=== PATIENT | male | born 1950 | race Caucasian/White ===

== ENCOUNTER 2019-01-28 15:38 | Emergency (ER) | payer MEDICAID, OTHER ==
[~2019-01-28] VITALS: Ht 162.6 cm; Wt 77.7 kg
[2019-01-28 15:44] VITALS: Ht 162.6 cm; Wt 77.7 kg
[2019-01-28] MEDS ORDERED: DOCU-144 PO (16:49)
[2019-01-28] MEDS ORDERED: ATOR40TA68 PO (16:50)
[2019-01-28] MEDS ORDERED: SENN-120 PO (16:50)
[2019-01-28] MEDS ORDERED: MORP15TA92 PO (16:52)
[2019-01-28] MEDS ORDERED: MENT1ADH TP (16:52)
[2019-01-28] MEDS ORDERED: PROP20TA4 PO (16:54)
[2019-01-28] MEDS ORDERED: NICO-546 TD (16:54)
[2019-01-28] MEDS ORDERED: NPH SQ ×2 (16:56→16:59)
[2019-01-28] MEDS ORDERED: ASCO500C7 PO (16:56)
[2019-01-28] MEDS ORDERED: AMIN30LI PO (16:57)
[2019-01-28] MEDS ORDERED: MULTI PO (16:57)
[2019-01-28] MEDS ORDERED: CHOL100062 PO (16:58)
[2019-01-28] MEDS ORDERED: PROC25SU RC (17:00)
[2019-01-28] MEDS ORDERED: METO10TA3 PO (17:01)
[2019-01-28] MEDS ORDERED: VENL150C94 PO (17:02)
[2019-01-28] MEDS ORDERED: [UNRECOGNIZED DRUG - CODE] PO (17:02)
[2019-01-28] MEDS ORDERED: BUPR-165 PO (17:03)
[2019-01-28] MEDS ORDERED: ONDA8TAB9 PO (17:03)
[2019-01-28] MEDS ORDERED: VANCOMYCIN 1 GM (PMX) 250 ML IVPB STA (18:25)
[2019-01-28] MEDS ORDERED: CEFEPIME 1GM/50 ML (PMX) 50 ML IVPB STA (18:25)
--- NOTE | 2019-01-28 19:06 | ERD ---
ER Documentation Chief Complaint Chief Complaint CHEST PAIN HPI This is a 68-year-old male comes in with complaints of chest pain that started approximate 1 hour prior to arrival. He said it is relieved since prior to coming into the department. Pain was mild to moderate in intensity with no exacerbating or alleviating factors. Denies fevers or chills. Denies any other current issues. ROS All systems reviewed and are negative except as per history of present illness. Medications Home Meds Reported Medications Ondansetron Hcl* (Zofran*) 8 Mg Tablet, 8 MG PO Q8 PRN for NAUSEA AND OR VOMITING, TAB 01/28/19 Bupropion Hcl* (Wellbutrin SR*) 150 Mg Tablet.sa, 150 MG PO BID, TAB.SA 01/28/19 Venlafaxine Hcl* (Venlafaxine Hcl ER*) 150 Mg Cap.er.24h, 150 MG PO DAILY, CAP 01/28/19 Nut.tx.gluc.intoler,Lac-Fr,Reg (BOOST GLUCOSE CONTROL) 237 Ml Liquid, 120 ML PO BID 01/28/19 Metoclopramide Hcl* (Metoclopramide Hcl*) 10 Mg Tablet, 10 MG PO AC MEALS AND BEDTIME PRN for NAUSEA AND OR VOMITING, TAB 01/28/19 Prochlorperazine (Compro) 25 Mg Supp.rect, 25 MG RC Q6 PRN for NAUSEA AND/OR VOMITING, SUPP.RECT 01/28/19 Insulin Human Nph (Novolin-N) 100 Units/Ml Susp, 6 SQ QHS 01/28/19 Cholecalciferol* (Vitamin D3*) 1,000 Unit Tablet, 1000 UNIT PO BID, TAB 01/28/19 Amino Acids/Protein Hydrolys (PRO-STAT LIQUID) 30 Ml Liquid.pkt, 30 ML PO DAILY 01/28/19 Multivitamins* (Theragran*) 1 Tab Tab, 1 TAB PO DAILY, TAB 01/28/19 Ascorbic Acid* (Vitamin C*) 500 Mg Capsule.sa, 500 MG PO BID, CAP 01/28/19 Insulin Human Nph (Novolin-N) 100 Units/Ml Susp, 27 SQ AC BREAKFAST HOLD IF BS<80 AND NOTIFY 01/28/19 Nicotine* (Nicotine* Patch) 21 mg/day Patch, 1 EACH TD DAILY, PATCH 01/28/19 Propranolol Hcl* (Propranolol Hcl*) 20 Mg Tablet, 20 MG PO BID, TAB HOLD FOR SBP<110 OR HR <60 01/28/19 Morphine Sulfate* (Ms Contin*) 15 Mg Tablet.sa, 15 MG PO Q12 PRN for PAIN, TAB 01/28/19 Menthol (Bengay Ultra Strength) 1 Each Adh..patch, 1 EACH TP QHS APPLY TO LOWER BACK 01/28/19 Atorvastatin* (Atorvastatin*) 40 Mg Tablet, 40 MG PO QHS, #30 TAB 01/28/19 Sennosides* (Senna Lax*) 8.6 Mg Tablet, 1 TAB PO QHS, TAB 01/28/19 Docusate Sodium* (Colace*) 100 Mg Capsule, 100 MG PO BID, #60 CAP 01/28/19 Allergies Allergies: Coded Allergies: No Known Allergy (Unverified , 01/28/19) PMhx/Soc Hx Alcohol Use: No Hx Substance Use: No Hx Tobacco Use: Yes Smoking Status: Former smoker Physical Exam Vitals Vital Signs Date Temp Pulse Resp B/P (MAP) Pulse Ox O2 O2 Flow FiO2 Time Delivery Rate 01/28/19 98.3 82 20 132/68 100 Room Air 18:39 (89) 01/28/19 81 23 98/75 (83) 97 Nasal 2.0 17:30 Cannula 01/28/19 88 20 129/78 96 Nasal 2.0 16:31 (95) Cannula 01/28/19 Nasal 2 15:51 Cannula 01/28/19 98.3 93 18 118/67 98 15:44 (84) Physical Exam Const: No acute distress Head: Atraumatic Eyes: Normal Conjunctiva ENT: Normal External Ears, Nose and Mouth. Neck: Full range of motion. No meningismus. Resp: Clear to auscultation bilaterally Cardio: Regular rate and rhythm, no murmurs Abd: Soft, non tender, non distended. Normal bowel sounds Skin: No petechiae or rashes Back: No midline or flank tenderness Ext: No cyanosis, or edema Neur: Awake and alert Psych: Normal Mood and Affect Result Diagram: 01/28/19 1559 01/28/19 1534 Results 24 hrs Laboratory Tests Test 01/28/19 15:59 White Blood Count 16.2 10^3/ul Red Blood Count 5.28 10^6/ul Hemoglobin 14.5 g/dl Hematocrit 45.1 % Mean Corpuscular Volume 85.4 fl Mean Corpuscular Hemoglobin 27.5 pg Mean Corpuscular Hemoglobin Concent 32.2 g/dl Red Cell Distribution Width 14.5 % Platelet Count 265 10^3/UL Mean Platelet Volume 10.6 fl Immature Granulocytes % 2.800 % Neutrophils % 60.5 % Lymphocytes % 29.4 % Monocytes % 5.7 % Eosinophils % 1.2 % Basophils % 0.4 % Nucleated Red Blood Cells % 0.0 /100WBC Immature Granulocytes # 0.450 10^3/ul Neutrophils # 9.8 10^3/ul Lymphocytes # 4.8 10^3/ul Monocytes # 0.9 10^3/ul Eosinophils # 0.2 10^3/ul Basophils # 0.1 10^3/ul Nucleated Red Blood Cells # 0.0 10^3/ul Sodium Level 140 mmol/L Potassium Level 4.1 mmol/L Chloride Level 104 mmol/L Carbon Dioxide Level 26 mmol/L Anion Gap 10 Blood Urea Nitrogen 15 mg/dl Creatinine 0.69 mg/dl Est Glomerular Filtrat Rate mL/min > 60 mL/min Glucose Level 234 mg/dl Calcium Level 7.3 mg/dl Total Bilirubin 0.3 mg/dl Direct Bilirubin 0.00 mg/dl Indirect Bilirubin 0.3 mg/dl Aspartate Amino Transf (AST/SGOT) 19 IU/L Alanine Aminotransferase (ALT/SGPT) 20 IU/L Alkaline Phosphatase 88 IU/L Troponin I < 0.012 ng/ml B-Type Natriuretic Peptide 268 PG/ML Total Protein 6.3 g/dl Albumin 3.4 g/dl Globulin 2.90 g/dl Albumin/Globulin Ratio 1.17 Current Medications Medications Dose Sig/Peggy Start Time Status Last (Trade) Ordered Route PRN Stop Time Admin Dose Reason Admin Cefepime HCl 50 ml @ ONCE STAT 01/28/19 DC 01/28/19 100 mls/hr IVPB 18:25 18:35 01/28/19 18:54 Vancomycin 250 ml @ ONCE STAT 01/28/19 HCl 125 mls/hr IVPB 18:25 01/28/19 20:24 Procedures/MDM EKG: Rate/Rhythm: [Normal Sinus Rhythm] QRS, ST, T-waves: [No changes consistent w/ acute ischemia] Impression: [No evidence of ischemia or arrhythmia] Chest X-ray 1V Interpreted by me: Soft Tissue: No acute abnormalities Bones: No acute abnormalities Mediastinum/Cardiac Silhouette/Lungs: Right lower lobe infiltrate Patient's symptoms are concerning for cardiac cause will require inpatient workup and continuous monitoring. Further w/u for ischemia, arrhythmia, PE or dissection will be deferred to the inpatient team. Patient did have evidence of possible pneumonia. Blood cultures drawn. Antibiotic started. No evidence of sepsis. Accepting Care Team: Current data and ongoing care discussed. Time: 7 PM Primary Provider: Patient will be transferred to [facility] Consulting: [facility] Outstanding Data: none Departure Diagnosis: Primary Impression: Chest pain Chest pain type: unspecified Qualified Codes: R07.9 - Chest pain, unspecified Additional Impression: Pneumonia Pneumonia type: due to unspecified organism Laterality: unspecified laterality Lung location: unspecified part of lung Qualified Codes: J18.9 - Pneumonia, unspecified organism Condition: Serious DWIGHT MATTHEWS Jan 28, 2019 19:06
[2019-01-28 19:50] VITALS: BP 126/72; PULSE 79; RESP 22
== END 2019-01-28 20:16 | disposition short-term general hospital (02) ==
LOC: E/R 15:38
DX: J18.9 Pneumonia, unspecified organism (principal); R40.2142 Coma scale, eyes open, spontaneous, at arrival to emergency department; R40.2252 Coma scale, best verbal response, oriented, at arrival to emergency department; R40.2362 Coma scale, best motor response, obeys commands, at arrival to emergency department; Z79.4 Long term (current) use of insulin
CPT/HCPCS: 36415; 71045; 80053; 83880; 84484; 85025; 87040; 93005; 96374; 96375; 99285; J0692; J3370